=== PATIENT | male | born 1980 | race Caucasian/White ===

== ENCOUNTER 2017-12-18 13:27 | Emergency (ER) | payer SELFPAY ==
[~2017-12-18] VITALS: Ht 172.7 cm; Wt 82.3 kg
[~2017-12-18 13:27] MED LIST: CLINDAMYCIN HC300 MG PO; ULTRAM50 MG PO
[2017-12-18 16:40] VITALS: BP 130/87
== END 2017-12-18 16:40 | disposition home or self-care (01) ==
LOC: RME 13:27 → EME 13:27 → RME 16:40
DX: M25.511 Pain in right shoulder (principal); F17.210 Nicotine dependence, cigarettes, uncomplicated
CPT/HCPCS: 73030; 99281; 99284